=== PATIENT | male | born 1960 | race Caucasian/White ===

== ENCOUNTER 2022-01-11 07:52 | Day surgery (SDC) | payer OTHER ==
[~2022-01-11] VITALS: Ht 172.7 cm; Wt 86.0 kg
--- NOTE | 2022-01-11 08:40 | NUR ---
01/11/22 0840 Camrel Potter 1ST IV ATTEMPT IN LH INFILTRATED, ATTEMPTED BY CHRISTOPHER ROMERO 2ND IV ATTEMPT IN LFA SUCCESSFUL, STARTED BY CHRISTOPHER ROMERO
--- NOTE | 2022-01-11 09:43 | NUR ---
01/11/22 0943 Amandeep Brock 0.05ML OF EPI 1MG/ML ADDED TO 10ML OF BUPIVICAINE 0.5% TO CREATE A SOLUTION OF BUPIVICAINE 0.5% WITH EPI 1:200,000.
== END 2022-01-11 11:05 | disposition home or self-care (01) ==
LOC: ORSCSDS 07:52
PROVIDERS: Orthopaedic Surgery
PROC: 0LN70ZZ Release Right Hand Tendon, Open Approach (ICD-10-PCS; principal; 2022-01-11 09:15)
DX: M65.341 Trigger finger, right ring finger (principal); M65.331 Trigger finger, right middle finger
CPT/HCPCS: J0171; J0690; J1100; J2250; J2405; J2704; J3010; J7120

== ENCOUNTER 2022-06-11 07:53 | Day surgery (SDC) | payer OTHER ==
[~2022-06-11] VITALS: Ht 172.7 cm; Wt 81.7 kg
--- NOTE | 2022-06-11 10:33 | NUR ---
06/11/22 1033 Carmel Potter 17.5ML ORISE USED TO ELEVATE ICV POLYP
== END 2022-06-11 11:00 | disposition home or self-care (01) ==
LOC: ORSCSDS 07:53
DX: Z12.11 Encounter for screening for malignant neoplasm of colon (principal); D12.5 Benign neoplasm of sigmoid colon; D12.0 Benign neoplasm of cecum
CPT/HCPCS: 88305; J2704; J7120

== ENCOUNTER 2022-10-04 11:58 | Day surgery (SDC) | payer OTHER ==
[~2022-10-04] VITALS: Ht 172.7 cm; Wt 68.0 kg
--- NOTE | 2022-10-04 15:15 | NUR ---
ICE TO SPLINT, PT ABLE TO WIGGLE TOES, TOES PINK, CAP REFILL LESS THAN 3 SEC. PT DENIES PAIN AT THIS TIME. Discharge instructions reviewed with patient. Patient verbalizes understanding. Copy given to patient to take home. TOLERATED COFFEE, DENIES NEED FOR SNACK. RIDE HOME LUCINA HERE. PT DRESSED AND DC VIA WC TO VEHICLE.
== END 2022-10-04 15:16 | disposition home or self-care (01) ==
LOC: ORSCMMR 11:58
PROVIDERS: Podiatrist Foot & Ankle Surgery
PROC: 0LQN0ZZ Repair Right Lower Leg Tendon, Open Approach (ICD-10-PCS; principal; 2022-10-04 12:30)
DX: S86.011A Strain of right Achilles tendon, initial encounter (principal)
CPT/HCPCS: J0690; J1100; J1885; J2250; J2405; J2704; J2795; J3010; J7120

== ENCOUNTER 2023-05-29 07:27 | Day surgery (SDC) | payer OTHER ==
[~2023-05-29] VITALS: Ht 172.7 cm; Wt 82.9 kg
[2023-05-29 10:04] VITALS: BP 110/79
--- NOTE | 2023-05-29 10:05 | NUR ---
05/29/23 1005 Debra Stone IV DC'D, CATH INTACT. PT TOLERATED WELL. COBAN/GAUZE IN PLACE
== END 2023-05-29 10:06 | disposition home or self-care (01) ==
LOC: ORSCSDS 07:27
PROVIDERS: Internal Medicine Gastroenterology
PROC: 0DJD8ZZ Inspection of Lower Intestinal Tract, Via Natural or Artificial Opening Endoscopic (ICD-10-PCS; principal; 2023-05-29 09:15)
DX: Z12.11 Encounter for screening for malignant neoplasm of colon (principal); Z86.010 Personal history of colon polyps
CPT/HCPCS: J2704; J3370; J7120